=== PATIENT | female | born 1930 | race Caucasian/White ===

== ENCOUNTER 2020-01-15 17:09 | Inpatient (IN) ==
[2020-01-15 19:23] LABS: Basophils % 1.1 % (0.0-0.8); Eosinophils % 0.3 % (0.00-10.9); Hematocrit 42.6 VOL% (35.7-47.0); Hemoglobin 13.5 GM/DL (12.0-16.0); Immature Granulocytes % 0.3 %; Immature Granulocytes Absolute 0.01 #; Lymphocytes # 1.3 10*3/uL (1.4-4.0); Lymphocytes % 33.2 % (21.3-54.2); Mean Corpuscular HGB Conc 31.7 GM/DL (32-36); Mean Corpuscular Volume 83.4 FL (87-102); Mean Platelet Volume 9.8 FL (9.6-12.0); Monocytes % 9.5 % (1.7-12.7); Neutrophils % 55.6 % (38.7-73.9); Platelet Count 99 T/CUMM (130-400); Red Blood Count 5.11 MC/CUMM (3.8-5.5); Red Cell Distribution Width 15.4 % (9.3-17.3); White Blood Count 3.8 T/CUMM (4-12)
[2020-01-15 19:28] LABS: Albumin 2.8 G/DL (3.4-5.0); Bilirubin,Total 0.4 MG/DL (0.2-1.0); Calcium 7.8 MG/DL (8.5-10.1); Osmolality,Calculated 284.1 MOS/KG (273-304); Total Protein 5.8 G/DL (6.4-8.3)
[2020-01-15] MEDS ORDERED: ONDANSETRON 4 MG/2 ML VIAL IV PRN (21:41)
[2020-01-15] MEDS ORDERED: ACETAMINOPHEN 325 MG TABLET PO PRN (21:41)
[2020-01-15] MEDS ORDERED: diphenhydrAMINE CAP 25 MG CAPSULE PO PRN (21:41)
[2020-01-15] MEDS ORDERED: hydrALAZINE 20 MG/1 ML VIAL IV PRN (21:41)
[2020-01-15] MEDS ORDERED: NICOTINE 21 MG/24 HR PATCH TRANSDERM PRN (21:41)
[2020-01-15] MEDS ORDERED: guaiFENesin/DM ER 600-30 MG TABLET PO PRN (21:41)
[2020-01-15] MEDS ORDERED: BISACODYL 5 MG TABLET PO PRN (21:41)
[2020-01-15] MEDS ORDERED: ALBUTEROL/IPRATROPIUM 3 ML NEB RESP TX PRN (21:41)
[2020-01-15] MEDS ORDERED: CALCIUM CARBONATE CHEW 500 MG TABLET PO PRN (21:41)
[2020-01-16 01:41] LABS: Basophils % 0.9 % (0.0-0.8); Eosinophils % 0.2 % (0.00-10.9); Hematocrit 43.9 VOL% (35.7-47.0); Hemoglobin 13.7 GM/DL (12.0-16.0); Immature Granulocytes % 0.2 %; Immature Granulocytes Absolute 0.01 #; Lymphocytes # 1.7 10*3/uL (1.4-4.0); Lymphocytes % 38.8 % (21.3-54.2); Mean Corpuscular HGB Conc 31.2 GM/DL (32-36); Mean Corpuscular Volume 83.8 FL (87-102); Mean Platelet Volume 9.3 FL (9.6-12.0); Monocytes % 9.5 % (1.7-12.7); Neutrophils % 50.4 % (38.7-73.9); Platelet Count 153 T/CUMM (130-400); Red Blood Count 5.24 MC/CUMM (3.8-5.5); Red Cell Distribution Width 15.2 % (9.3-17.3); White Blood Count 4.4 T/CUMM (4-12)
[2020-01-16 02:01] LABS: Alanine Aminotransferase 10 U/L (13-56); Albumin 3.1 G/DL (3.4-5.0); Alkaline Phosphatase 95 U/L (45-117); Aspartate Amino Transferase 11 U/L (0-37); Bilirubin,Total < 0.39 MG/DL (0.2-1.0); Blood Urea Nitrogen 16 MG/DL (7-18); Calcium 8.5 MG/DL (8.5-10.1); Estimated Glom Filtration Rate 84 ML/MIN; Glucose 94 MG/DL (74-106); Osmolality,Calculated 283.1 MOS/KG (273-304); Total Protein 6.2 G/DL (6.4-8.3)
[2020-01-16] MEDS: POTASSIUM CHLORIDE 20 MEQ TABLET PO SCH (09:13)
[2020-01-16] MEDS: methIMAzole 10 MG TABLET PO SCH (09:13)
[2020-01-16] MEDS: FERROUS SULFATE 325 MG TABLET PO SCH (09:13)
[2020-01-16] MEDS: VENLAFAXINE XR 75 MG CAPSULE PO SCH (09:13)
[2020-01-16] MEDS: METOPROLOL SUCCINATE XL 25 MG TABLET PO SCH (09:13)
[2020-01-16] MEDS: DOCUSATE SODIUM 100 MG CAPSULE PO SCH ×2 (09:13→21:23)
[2020-01-16] MEDS: ISONIAZID 300 MG TABLET PO SCH (09:59)
[2020-01-16 11:31] LABS: HIV Antigen/Antibody Result Nonreactive (Nonreactive)
[2020-01-17] MEDS: POTASSIUM CHLORIDE 20 MEQ TABLET PO SCH (08:12)
[2020-01-17] MEDS: VENLAFAXINE XR 75 MG CAPSULE PO SCH (08:12)
[2020-01-17] MEDS: methIMAzole 10 MG TABLET PO SCH (08:12)
[2020-01-17] MEDS: DOCUSATE SODIUM 100 MG CAPSULE PO SCH ×2 (08:12→21:39)
[2020-01-17] MEDS: FERROUS SULFATE 325 MG TABLET PO SCH (08:12)
[2020-01-17] MEDS: METOPROLOL SUCCINATE XL 25 MG TABLET PO SCH (08:13)
[2020-01-17] MEDS: ISONIAZID 300 MG TABLET PO SCH (08:14)
[2020-01-18] MEDS: POTASSIUM CHLORIDE 20 MEQ TABLET PO SCH (08:21)
[2020-01-18] MEDS: FERROUS SULFATE 325 MG TABLET PO SCH (08:21)
[2020-01-18] MEDS: methIMAzole 10 MG TABLET PO SCH (08:21)
[2020-01-18] MEDS: ISONIAZID 300 MG TABLET PO SCH (08:21)
[2020-01-18] MEDS: METOPROLOL SUCCINATE XL 25 MG TABLET PO SCH (08:21)
[2020-01-18] MEDS: DOCUSATE SODIUM 100 MG CAPSULE PO SCH (08:21)
[2020-01-18] MEDS: VENLAFAXINE XR 75 MG CAPSULE PO SCH (08:21)
[2020-01-18 12:45] VITALS: BP 118/48
[2020-01-18 19:17] LABS: QuantiFERON-Tb Gold Pl Negative (Negative); TB2 Ag Minus Result 0 IU/mL
== END 2020-01-18 13:20 | disposition home or self-care (01) | DRG 177 ==
LOC: EDUNIT# → EDBD → N.ED 17:09 → SUATTDRO 01-16 00:19 → SUPCPDRO 01-16 00:19 → N.EDINP 01-16 00:19 → N.ICU 01-16 00:20
PROVIDERS: ADMIT Family Medicine; ATTEND Internal Medicine